=== PATIENT | female | born 2005 | race Caucasian/White ===

== ENCOUNTER → 2024-08-15 13:08 | Outpatient (BNVA) | payer OTHER, SELFPAY | PROVIDERS: Family Provider General Practice; PCP Nurse Practitioner Family; Visit Provider Nurse Practitioner | DX: M79.672 Pain in left foot (principal) | CPT/HCPCS: 73630 ==

== ENCOUNTER 2025-05-17 19:12 | Emergency (ER) | payer OTHER, SELFPAY ==
--- OUTSIDE RECORDS SUMMARY | 2025-02-15 23:59 | XMS_ITS | Continuity of Care Document ---
Author Name [facility] Address [address] [place] [address] Organization [facility] Care Team Providers Care [employer] Architect Name Role Phone [facility] Unavailable Unavailable Problems Problem Status Onset Date Problem Type Date of Resolution Comments Source Paresthesia (finding) 10/29/2024 Diagnosis Pain in left foot (finding) 08/28/2024 Diagnosis Pilonidal abscess 06/30/2024 Diagnosis Cellulitis (disorder) 06/29/2024 Diagnosis Anxiety (finding) Active Condition Attention deficit hyperactivity disorder (disorder) Active Condition Depressive disorder (disorder) Active Condition Gender dysphoria (disorder) Active Condition History of - ear disorder (context-dependent category) Resolved Condition Menstrual cramp (finding) Active Condition Gender identity disorder (disorder) Diagnosis Carpal tunnel syndrome of right wrist (disorder) Diagnosis History of - psychiatric disorder (context-dependent category) Diagnosis Carpal tunnel syndrome, right upper limb Active Diagnosis Medications Medication Details Route Status Patient Instructions Ordering Provider Order Date Source Testosterone Cypionate 200 mg/mL intramuscular solution 100 mg = 0.5 mL, Subcutaneou s, qWeek, dispense 4 x 1 mL vials. Discard after use., # 4 mL, Refill(s) 2, Pharmacy: [facility], 159.9, cm, 01/17/24 13:31:00 CDT, Height (cm), kg, 05/18/24 14:11:00 CDT, Weight (kg), 88.[address] [place] [address] Results Order Name Results Value Reference Range Date Interpretation Comments Source CLINIC SITE LAB RESULTS POC U hCG (Rals) Negative *NA* (01/22/25 6:07 AM) 01/22 11:07 [facility] Testosterone Total 582.32 ng/dL 08/28 17:33 :00 [facility] [place] 2] GENERAL CHEMISTRY BUN 8 mg/dL 6 - 20 08/28 17:33 :00 [facility] [place][Note 2] GENERAL CHEMISTRY ALT-SGPT 21 U/L 10 - 40 08/28 17:33 :00 [facility] [place][Note 2] GENERAL CHEMISTRY Creatinine, standardized 0.8 mg/dL 0.5 - 1.0 08/28 17:33 :00 Interpretive Data: Ojkivs-gb-zow e transgender patients on testosterone therapy should have results assessed using the male reference range. Ctyh-yc-chymv e transgender patients on hormone-modul ating therapy clinical judgment is advisedfor assessment. [facility] [place][Note 2] GENERAL CHEMISTRY Total Protein 7.5 g/dL 5.7 - 8.2 08/28 17:33 :00 [facility] [place][Note 2] GENERAL CHEMISTRY Chloride 101 mmol/L 98 - 107 08/28 17:33 :00 [facility] [place][Note 2] GENERAL CHEMISTRY Glucose Lvl 136 mg/dL 70 - 139 08/28 17:33 :00 [facility] [place][Note 2] GENERAL CHEMISTRY Calcium 9.3 mg/dL 8.3 - 10.6 08/28 17:33 :00 [facility] [place][Note 2] GENERAL CHEMISTRY CO2 30 mmol/L 20 - 31 08/28 17:33 :00 [facility] [place][Note 2] GENERAL CHEMISTRY Potassium 3.8 mmol/L 3.5 - 5.1 08/28 17:33 :00 [facility] [place][Note 2] GENERAL CHEMISTRY Sodium 140 mmol/L 136 - 145 08/28 17:33 :00 [facility] [place][Note 2] GENERAL CHEMISTRY Estimated GFR for peds Not Calculated mL/min/1.7 3m 08/28 17:33 :00 Interpretive Data: The estimated GFR was calculated using the B to St equation (2009) . Reference: Pediatric GFR calculator at [employer] Website. [facility] [place][Note 2] GENERAL CHEMISTRY Estimated GFR for Adults 117 mL/min/1.7 3m 08/28 17:33 :00 Interpretive Data: Changed to CKD-EPI 2020 on 2020. [facility] [place][Note 2] GENERAL CHEMISTRY Alkaline Phosphatase 96 U/L 35 - 104 08/28 17:33 :00 [facility] [place][Note 2] GENERAL CHEMISTRY Albumin 4.1 g/dL 3.4 - 5.0 08/28 17:33 :00 [facility] [place][Note 2] GENERAL CHEMISTRY T Bili 0.40 mg/dL 0.30 - 1.20 08/28 17:33 :00 [facility] [place][Note 2] GENERAL CHEMISTRY AST-SGOT 20 U/L 08/28 17:33 :00 [facility] [place][Note 2] GENERAL CHEMISTRY Anion gap 13 mmol/L 0 - 20 08/28 17:33 :00 [facility] [place][Note 2] GENERAL CHEMISTRY 3rd Generation TSH 2.287 mcIU/mL 0.550 - 4.780 08/28 17:33 :00 Interpretive Data: Reference Interval I U/mL Infants (1 2 3 months) 0.87 6 .15 Children (2 1 2 years) 0.67 4 .16 Adolescents (13 2 0 years) 0.48 4 .17 [facility] [place][Note 2] GENERAL CHEMISTRY Vitamin B12 718 pg/mL 211 - 911 08/28 17:33 :00 [facility] [place][Note 2] GENERAL CHEMISTRY Folate 38.64 ng/mL 08/28 17:33 :00 [facility] [place][Note 2] HEMATOLOGY PROFILES % Basophils 0.8 % 08/28 17:33 :00 [facility] [place][Note 2] HEMATOLOGY PROFILES Absolute Granulocytes 3.02 x10(9)/L 1.70 - 7.00 08/28 17:33 :00 [facility] [place][Note 2] HEMATOLOGY PROFILES % Immature Granulocytes 0.40 % 0.02 - 0.42 08/28 17:33 :00 [facility] [place][Note 2] HEMATOLOGY PROFILES Abs Monocytes 0.42 x10(9)/L 0.30 - 0.90 08/28 17:33 :00 [facility] [place][Note 2] HEMATOLOGY PROFILES Abs Lymphocytes 1.56 x10(9)/L 0.90 - 2.90 08/28 17:33 :00 [facility] [place][Note 2] HEMATOLOGY PROFILES % Nucleated RBCs 0.0 % 08/28 17:33 :00 [facility] [place][Note 2] HEMATOLOGY PROFILES Absolute Nucleated RBCs 0.0 x10(9)/L 0.0 - 0.0 08/28 17:33 :00 Interpretive Data: Normal values not established in patients less than 18 years old. [facility] [place][Note 2] HEMATOLOGY PROFILES Abs Basophils 0.04 x10(9)/L 0.00 - 0.30 08/28 17:33 :00 [facility] [place][Note 2] HEMATOLOGY PROFILES Abs Eosinophils 0.09 x10(9)/L 0.05 - 0.50 08/28 17:33 :00 [facility] [place][Note 2] HEMATOLOGY PROFILES % Lymphocytes 30.3 % 08/28 17:33 :00 [facility] HEMATOLOGY PROFILES % Neutrophils 58.6 % 08/28 17:33 :00 [facility] HEMATOLOGY PROFILES Abs Immature Granulocytes 0.02 x10(9)/L 0.00 - 0.03 08/28 17:33 :00 [facility] HEMATOLOGY PROFILES % Eosinophils 1.7 % 08/28 17:33 :00 [facility] [place][Note 2] HEMATOLOGY PROFILES % Monocytes 8.2 % 08/28 17:33 :00 [facility] [place][Note 2] HEMATOLOGY PROFILES RBC 5.21 x10(12)/L 3.90 - 5.03 08/28 17:33 :00 [facility] [place][Note 2] HEMATOLOGY PROFILES WBC 5.15 x10(9)/L 3.50 - 10.50 08/28 17:33 :00 [facility] [place][Note 2] HEMATOLOGY PROFILES HCT 46.0 % 34.9 - 44.5 08/28 17:33 :00 Interpretive Data: Eahkft-dw-crt e transgender patients on testosterone therapy should have results assessed using the male reference range. Eotg-ua-wkfzs e transgender patients on hormone-modul ating therapy clinical judgment is advisedfor assessment. [facility] [place][Note 2] HEMATOLOGY PROFILES HGB 15.0 g/dL 12.0 - 15.5 08/28 17:33 :00 Interpretive Data: Fceswy-us-tmp e transgender patients on testosterone therapy should have results assessed using the male reference range. Bgiq-hz-dqskd e transgender patients on hormone-modul ating therapy clinical judgment is advisedfor assessment. [facility] [place][Note 2] HEMATOLOGY PROFILES MPV 11.9 8.0 - 12.0 08/28 17:33 :00 [facility] HEMATOLOGY PROFILES PLT 230 x10(9)/L 150 - 450 08/28 17:33 :00 [facility] [place][Note 2] HEMATOLOGY PROFILES RDW SD 46.5 fL 36.4 - 46.3 08/28 17:33 :00 [facility] HEMATOLOGY PROFILES MCH 28.8 pg 26.0 - 33.0 08/28 17:33 :00 [facility] [place][Note 2] HEMATOLOGY PROFILES MCV 88.3 fL 81.6 - 98.3 08/28 17:33 :00 [facility] [place][Note 2] HEMATOLOGY PROFILES RDW CV 14.6 % 11.9 - 15.5 08/28 17:33 :00 [facility] [place][Note 2] HEMATOLOGY PROFILES [facility] 32.6 g/dL 32.0 - 36.0 08/28 17:33 :00 [facility] CHEMISTRY Estimated Average Glucose 117 mg/dL 08/28 17:33 :00 Interpretive Data: Interpretativ e Information: Estimated Average Glucose (eAG) Comment Tab: The table below shows the relationship between HbA1c and estimated average glucose (eAG). These data are presented only as a general guide for patient education. HbA1c (%) eAG (mg/dL) 4 70 5 97 6 126 7 154 8 183 9 212 10 240 11 269 12 298 Formula: eAG = 28.7 x HbA1c 46.7 REFERENCE: Charbel FERNANDEZ et al: Translating the A1c Assay into Estimated Average Glucose Values. Diabetes Care 31:1473-8, 2007 [facility] CHEMISTRY Hemoglobin A1c 5.7 % 4.0 - 5.6 08/28 17:33 :00 Interpretive Data: Interpretativ e Information: Hemoglobin A1C (HbA1c) Comment Tab: [place] Diabetes Association criteria: 5.6% Normal 5.7 to 6.4 % Prediabetes 6.5% Diabetes Repeat hemoglobin A1c testing or follow-up with an alternative test such as the 2-hour OGTT is required prior to the diagnosis of diabetes. Prediabetes: Patient counseling and commitment to a course of lifestyle modification is recommended with follow-up testing 3-6 months later. Diabetes mellitus: HbA1c correlates highly with average daily glycemia over the preceding 60-90 day period. While g ood control is generally considered to be HbA1c < 7.0%, individual factors influence HbA1c goals and attained results, which providers should take into account when using HbA1c in patient management and counseling. In particular, HbA1c does not reliably capture frequency and severity of treatment-rel ated hypoglycemia, which may obligate relaxation of HbA1c goals for the patient. Note: Any condition that shortens erythrocyte survival or decreases mean erythrocyte age will lower HbA1c results regardless of the assay method. HbA1c results after blood transfusion should be interpreted with caution. REFERENCES: The Diabetes Control and Complications Trial Research Group: The effect of intensive treatment of diabetes on the development and progression of long-term complications in insulin-depen dent diabetes mellitus. N Engl J Med 329:977-86, 1993 National Glycohemoglob in Standardizati on Program (NGSP) website: http://www.ng sp.org [facility] GENERAL CHEMISTRY Testosterone Total 646.71 ng/dL 05/22 16:54 :00 [facility] HEMATOLOGY PROFILES % Nucleated RBCs 0.0 % 05/22 16:54 :00 [facility] HEMATOLOGY PROFILES Absolute Nucleated RBCs 0.0 x10(9)/L 0.0 - 0.0 05/22 16:54 :00 Interpretive Data: Normal values not established in patients less than 18 years old. [facility] HEMATOLOGY PROFILES % Neutrophils 57.5 % 05/22 16:54 :00 [facility] HEMATOLOGY PROFILES % Lymphocytes 33.0 % 05/22 16:54 :00 [facility] HEMATOLOGY PROFILES % Monocytes 6.3 % 05/22 16:54 :00 [facility] HEMATOLOGY PROFILES % Eosinophils 2.1 % 05/22 16:54 :00 [facility] HEMATOLOGY PROFILES % Basophils 1.1 % 05/22 16:54 :00 [facility] HEMATOLOGY PROFILES % Immature Granulocytes 0.00 % 0.02 - 0.42 05/22 16:54 :00 [facility] HEMATOLOGY PROFILES Absolute Granulocytes 2.74 x10(9)/L 1.70 - 7.00 05/22 16:54 :00 [facility] HEMATOLOGY PROFILES Abs Lymphocytes 1.57 x10(9)/L 0.90 - 2.90 05/22 16:54 :00 [facility] HEMATOLOGY PROFILES Abs Monocytes 0.30 x10(9)/L 0.30 - 0.90 05/22 16:54 :00 [facility] HEMATOLOGY PROFILES Abs Eosinophils 0.10 x10(9)/L 0.05 - 0.50 05/22 16:54 :00 [facility] HEMATOLOGY PROFILES Abs Basophils 0.05 x10(9)/L 0.00 - 0.30 05/22 16:54 :00 [facility] HEMATOLOGY PROFILES Abs Immature Granulocytes 0.00 x10(9)/L 0.00 - 0.03 05/22 16:54 :00 [facility] HEMATOLOGY PROFILES WBC 4.76 x10(9)/L 3.50 - 10.50 05/22 16:54 :00 [facility] HEMATOLOGY PROFILES RBC 5.02 x10(12)/L 3.90 - 5.03 05/22 16:54 :00 [facility] HEMATOLOGY PROFILES HGB 14.2 g/dL 12.0 - 15.5 05/22 16:54 :00 Interpretive Data: Kmjnmb-kj-ekj e transgender patients on testosterone therapy should have results assessed using the male reference range. Pcqu-pi-vyvfh e transgender patients on hormone-modul ating therapy clinical judgment is advisedfor assessment. [facility] HEMATOLOGY PROFILES HCT 43.7 % 34.9 - 44.5 05/22 16:54 :00 Interpretive Data: Ikxtdm-fl-mbu e transgender patients on testosterone therapy should have results assessed using the male reference range. Efol-uj-wxgdl e transgender patients on hormone-modul ating therapy clinical judgment is advisedfor assessment. [facility] HEMATOLOGY PROFILES MCV 87.1 fL 81.6 - 98.3 05/22 16:54 :00 [facility] HEMATOLOGY PROFILES MCH 28.3 pg 26.0 - 33.0 05/22 16:54 :00 [facility] HEMATOLOGY PROFILES MCHC 32.5 g/dL 32.0 - 36.0 05/22 16:54 :00 [facility] HEMATOLOGY PROFILES RDW CV 14.4 % 11.9 - 15.5 05/22 16:54 :00 [facility] HEMATOLOGY PROFILES RDW SD 46.1 fL 36.4 - 46.3 05/22 16:54 :00 [facility] HEMATOLOGY PROFILES PLT 256 x10(9)/L 150 - 450 05/22 16:54 :00 [facility] HEMATOLOGY PROFILES MPV 11.4 8.0 - 12.0 05/22 16:54 :00 [facility] Consultation Notes Results Value Date Source Orthopaedic Clinic Note Admit Date: 01/19 ID: 19 Years old Female Surgical Procedure: Right open carpal tunnel release Date of Surgery: 01/22/2025 (3 weeks post-op) Date of Last Visit: 02/04/25 Clinical History and Progress: Patient is a 19 year old RHD female 3 weeks status post above mentioned procedure. Today, patient reports 4/10 pain and has been doing well overall postoperatively. Patient feels that the numbness and tingling has improved compared to preoperatively but has noticed some continued decreased foster parent strength and some weakness. Patient reports that he used the brace for a couple of nights postoperatively, and the tingling sensations he was previously experiencing have since resolved. He also has some increased swelling of the right hand, which has improved some. Patient has continued to take naproxen for pain. General Physical exam: General appearance: The patient appears as stated age, well, comfortable and in no apparent distress. Disposition: Vitals: not recorded for this visit Focused upper extremity exam: Surgical incision is well healed Able to make a complete fist Slight increased edema on the dorsum of the hand with equal wetness compared to the contralateral side Neurologically intact in the median, ulnar, and radial nerve distributions. BCR. Imaging / diagnostic studies: None. Impression/Plan: Patient is a 19 year old female status post above mentioned procedure. Patient has been doing well overall postoperatively. His numbness and tingling have improved compared to preoperatively but still feels weakness in his right hand. After physical exam, clinical findings were discussed with the patient. I am pleased with the progress that patient has made postoperatively. In regard to patient's right hand weakness, I reassured patient that this is common after surgery and anticipate that this will continue to improve with time as he continues to use his hand and rebuilds strength. Patient is cleared to proceed with activity as tolerable. In regard to patient's left hand, he expressed that he would like to hold off on surgical intervention at this time. I instructed patient to reach back out to clinic to schedule follow up if his left hand symptoms worsen and he is interested in further intervention. Patient was agreeable with this plan. All questions were answered and patient was encouraged to call should needs arise. Follow-up: PRN This document was scribed for Dr. Toro Cevallos by Ezio Alfonso, on 02/15/25 12:57:47 Attestation by Toro Cevallos MD on February 17, 2025 13:51 I was present for this appointment, confirmed the exam, and agree with the plan as described in the note above scribed in my presence on the date and time listed at the header of this document with additional comments as noted: None Dr. Toro Cevallos MD, MS [employer] Hand and Microvascular Surgeon [facility] [facility] 02/15/2025 Orthopaedic Clinic Note Visit Date: 01/17 ID: 19 Years old Female Surgical Procedure: Right open carpal tunnel release Date of Surgery: 01/22/2025 (13 days post-op) Clinical History and Progress: Yary is a pleasant 19-year-old patient who comes to clinic today for their first postoperative visit for the above-stated procedure. The patient states that they have been doing pretty good since surgery. The patient indicates that postoperative pain has been somewhat difficult to manage. At this time Yary is rating pain a 6 out of 10. Yary has been using iahk-whh-wrspncm Aleve as well as using ice to help with pain management. Initially, after surgery Yary indicates that symptoms felt improved. However, about 3 or 4 days post op they began to have a persistent prickling type sensations. They describe this as different than what they were experiencing prior to surgery. Yary describes this as fairly persistent, however sometimes more intense and comes increases in intensity comes at random times. Sometimes Yary does not notice this. Yary also notes that the prikling sensation has woke him up at night or has made it difficult to fall asleep. When asked if the night time if the night time symptoms were worse, same, or better after surgery Yary had some difficulty answering. After some hesitation and thought Yary felt that maybe night time symptoms are a little worse. Yary is still having left sided symptoms. General Physical exam: General appearance: The patient appears as stated age, well, comfortable and in no apparent distress. Disposition: Vitals: Temperature 35.9 (02/04/25 08:59) Pain Score 6 (02/04/25 08:59) Focused upper extremity exam: Surgical incision is clean, dry, healed. Nylon sutures were removed in clinic. At this time there are no concerning signs or symptoms of infection. Swelling about the palm and digits and distal wrist. Distance palmar crease 0 cm Sensations are intact to light touch at this time. Paresthesias are noted in the thumb through middle finger digits. Digits are warm well-perfused, capillary fill is 2 seconds Imaging / diagnostic studies: None Impression/Plan: Overall, Yary is doing good. Yary was complaint with post op dressings. There are no concerning sings of infection. There is some swelling present through out the wrist, palm, and digits when compared to the left hand. Nylons sutures were removed today. There is pilar pain in the base of the palm. Yary has intact sensations with a self described prickling sensation. This sensation developed about 3-4 days after surgery. It has been fairly persistent, and at times does increase transiently and at random. There have been a few occasions when this has not been present. This prickling sensation has interfere with night time. Yary states that he has has some difficulty falling asleep due to this and on a few occasions has woken him up. When asked if the night time if the night time symptoms were worse, same, or better after surgery Yary had some difficulty answering. After some hesitation and thought Yary felt that maybe night time symptoms are a little worse. I I suspect that this could be a sign that his median nerve is waking up and healing some. I let Yary know that this can sometimes happen with nerves and experiencing some weird sensations. I let Yary know that this usually does improve over time. I also suspect this due to some of the swelling about the wrist, palm, and digits. I suspect that with some more time with healing that this will improve. Given this I would like to see Yary back in clinic in 2 weeks for a repeat assessment. He was agreeable with this. I would also like Yary to use their wrist brace at night to help prevent flexion of the wrist while there is still some swelling and inflammation present. Yary verbalized understanding. Yary was advised to contact the office sooner if any needs were to arise. Follow-up: 2 Weeks Patient seen and assessed by Andres Tobar MS, ATC, LAT, OTC on 02/04/25 09:27:55 [employer] Leak Tester to Dr. Toro Cevallos MD, MS *This dictation was performed using HumanAPI software and may contain dictation inaccuracies Attestation by Toro Cevallos MD on 02/05/25 06:45:38 I discussed the patient with the ATC/OTC on the date listed at the header of this document. I agree with everything documented above with the following exceptions/additions: None Sincerely, Dr. Toro Cevallos MD, MS [employer] Hand and Microvascular Surgeon [facility] [facility] 02/04/2025 Op/Procedure Note Indication for Surge ry Symptoms of carpal tunnel syndrome refractory to conservative treatment. After a full discussion of the risks, benefits, and alternatives of carpal tunnel release the patient wished to proceed with surgery. Further details are available in the office notes. Preoperative Diagnosis Right carpal tunnel syndrome Postoperative Diagnosis Same Operation Right open carpal tunnel release Surgeon(s) Dr. Toro Cevallos MD [place] [employer] Leak Tester Dr. HEVER Hines MD Anesthesia MAC plus local Estimated Blood Loss 5 cc Urine Output Findings Thickened transverse carpal ligament Specimen(s) None Complications None Technique The patient was placed supine on operating room table. Timeout was called identifying the correct patient, procedure, operating room team, presence of all necessary equipment, and lack of contra-indications to surgery. The incision site was infiltrated with 10mL of a 1:1 mixture of 1% lidocaine and 0.5% marcaine local anesthetic. The operative extremity was then thoroughly scrubbed prepped and draped in a sterile fashion. The hand was elevated for exsanguination and then the distal forearm tourniquet was inflated to 250 mm of mercury. A 2 cm incision was made in line with the ring finger metacarpal from the distal margin of the transverse carpal ligament proximal. Dissection was carried down to the palmar fascia, which was opened longitudinally. The transverse carpal ligament was then visualized and divided along its ulnar border distally until fat became visible. Care was taken distally to protect the deep palmar arch throughout the dissection. The subcutaneous tissue was then elevated off the distal forearm fascia. The fascia was then divided proximally under direct visualization. The radial leaf of the transverse carpal ligament was elevated exposing the median nerve. The nerve was free and clear of constriction at the end of the procedure. No other pathology was identified. The tourniquet was released, all fingertips were pink with good capillary refill. Hemostasis was achieved with bipolar cautery. The wound was copiously irrigated. The skin was then closed with interrupted 4-0 nylon. Xeroform and a light dressing was applied. The patient was transferred to the recovery room having tolerated the procedure well. Follow up arrangements: COURTNEY JIMENEZ has been given a followup appointment and has been instructed in the importance of keeping this appointment. If questions, concerns or any other issues arise, instructions have been given to call the office immediately. 01/22/2025 Orthopaedic Clinic Note Attending Physic ruslan: Toro Cevallos MD Referring Physician: Leyda DIEZ Original Referring Provider: Leyda DIEZ Primary Care Physician: Dennys Molina MD Visit Date: 01/09/2025 ID: 19 Years old Female Hand dominance: RHD Occupation: unemployed. [facility] [employer] Reason for consult: REFERRAL BILATERAL CARPAL TUNNEL Past Medical History: History of ear infections as a child Problems: Anxiety; Depression; Gender dysphoria; Menstrual cramps Procedure History: Tympanostomy tubes (04/14/08) Prescription Medications escitalopram (escitalopram 20 mg): 20 mg 1 Tablet(s) Oral Daily albuterol (albuterol HFA 90 mcg/inh inhalation aerosol): 2 Puff Inhalation q4h PRN (as needed for wheezing) Misc. Medication (18 guage fill needle): See Instructions use with testosterone Misc. Medication (1 cc syringe): See Instructions use with testosterone Misc. Medication (needle 23 guage x 1 inch): See Instructions use with testosterone testosterone (Testosterone Cypionate 200 mg/mL intramuscular solution): 100 mg/0.5 mL Subcutaneous qWeek dispense 4 x 1 mL vials. Discard after use. 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 Home/Environment Comment(s): [place], [place] Substance Abuse Risk Assessment: Denies Substance Abuse Tobacco Risk Assessment: Denies Tobacco Use No other relevant social or family history provided in context of current presenting complaint. Clinical history (HPI): Yary Ramirez is a pleasant 19 year old biological female transitioning to male presenting with a concern for numbness and tingling in her bilateral hands right worse than left. He reports that he first started having the symptoms in May. He first sought treatment in August when he started wearing neutralization wrist braces. He reports that the braces were not very helpful. He states that he feels like there is slowly worsening of his symptoms. Physical exam: General appearance: The patient appears as stated age, well, comfortable and in no apparent distress. Disposition: Pleasant Vital Signs: Temperature 36.9 (01/09/25 14:34) Pain Score 0 (01/09/25 14:34) Cardiovascular: Normal peripheral pulse and normal rate Respiratory: Non-labored breathing. Talks in full sentences without shortness of breath. Focused right upper extremity exam of the affected extremity: Pain: 0/10 FC of the Right cubital tunnel negative, Tinel's right cubital tunnel negative, negative Tinel's at the right carpal tunnel, positive combined Phalen Durkan's at the right carpal tunnel 2 point intact to 5mm in the 1st through 5 digits. negative Froment, negative Wartenberg On inspection, there was no wrist or digit edema. There was no erythema or ecchymosis. Normal skin colour, turgor and perspiration. There was no thenar, hypothenar, or interosseous muscle atrophy. Capillary refill was <2 seconds in all digits. EPL, Index FDP, APB, and interossei motor exam was 5/5. Sensation was intact to light touch in the radial, median, and ulnar nerve distributions. Focused left upper extremity exam of the affected extremity: Pain: 0/10 FC of the left cubital tunnel positive, Tinnels left cubital tunnel negative, negative tinnels at the left carpal tunnel, positive combined Phalen Durkan's at the left carpal tunnel 2 point intact to 5mm in the 1st through 5 digits. negative Froment, negative Wartenberg On inspection, there was no wrist or digit edema. There was no erythema or ecchymosis. Normal skin colour, turgor and perspiration. There was no thenar, hypothenar, or interosseous muscle atrophy. Capillary refill was <2 seconds in all digits. EPL, Index FDP, APB, and interossei motor exam was 5/5. Sensation was intact to light touch in the radial, median, and ulnar nerve distributions. Imaging / diagnostic studies: The patient's EMG/NCS was independent reviewed. This demonstrates bilateral carpal tunnel syndrome with no evidence of any denervation. The official read is as follows: Findings: 1. Right median APB CMAP demonstrates distal latency prolongation. 2. Left median APB CMAP demonstrates borderline normal distal latency. 3. Both right and left median digital sensory studies demonstrate peak latency prolongation with velocity slowing, right>left. 4. Ulnar and radial nerve studies are within normal limits. 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 [1] Impression: Bilateral carpal tunnel syndrome R> L Plan: Patient is a 19 year old biological female transitioning to male who presents with bilateral right worse than left carpal tunnel. I discussed the patient's diagnosis Bilateral carpal tunnel syndrome and outlined the natural history of the presenting pathology. Based on our discussion and the clinical findings, I discussed my proposed surgical option with the patient, consisting of Right open carpal tunnel release. The nonoperative treatment options were also discussed as well. The risks and benefits of surgery were discussed with the patient. These included but were not limited to pain, infection, bleeding, damage to surrounding structures, nerve irritation or injury, vascular injury, incisional hypersensitivity, pillar pain, persistent symptoms, recurrent symptoms, median nerve injury, subsequent surgeries, stiffness, complex regional pain syndrome, and complications of anesthesia. Additionally, the patient understands that surgery could make them no better or worse than they were before surgery. I discussed that I cannot predict adverse events such as allergic reaction to medications, anesthesia, or temporary implants. I discussed the expected outcomes following surgery, including the recovery period, the length of immobilization post-operatively, time off work, and anticipated pain control regimens. The patient expressed understanding, and wishes to proceed with surgery. Signed informed consent was obtained in Clinic. Follow-up: OR for carpal tunnel release Patient seen and assessed with attending surgeon Dr. Toro Cevallos; Clinical note dictated by Dr. Hines on 01/09/25 17:11:41 *This note was dictated using either HumanAPI or PowerChart and may contain dictation inaccuracies. Attestation by Toro Cevallos MD on January 10, 2025 12:19 I personally saw and evaluated the patient on the date listed at the header of this document. I independently performed the critical/mcmahan portions of the Evaluation and Management service and discussed the management with the resident. I agree with everything documented above with the following exceptions/additions: None Sincerely, Dr. Toro Cevallos MD, MS [employer] Hand and Microvascular Surgeon [facility] [facility] [place] 01/09/2025 Orthopaedic Clinic Note Visit Date: 12/18 ID: 19 Years old Female Hand dominance: Right Occupation: Unemployed Chief Complaint: Bilateral hand numbness/tingling Past Medical History: Anxiety; Depression; Gender dysphoria; Menstrual cramps Procedure History: Tympanostomy tubes (04/14/08) Prescription Medications escitalopram (escitalopram 20 mg): 20 mg 1 Tablet(s) Oral Daily albuterol (albuterol HFA 90 mcg/inh inhalation aerosol): 2 Puff Inhalation q4h PRN (as needed for wheezing) Misc. Medication (18 guage fill needle): See Instructions use with testosterone Misc. Medication (1 cc syringe): See Instructions use with testosterone Misc. Medication (needle 23 guage x 1 inch): See Instructions use with testosterone testosterone (Testosterone Cypionate 200 mg/mL intramuscular solution): 100 mg/0.5 mL Subcutaneous qWeek dispense 4 x 1 mL vials. Discard after use. Historical Medications busPIRone (busPIRone 15 mg): 60 Tablet(s), 0 Refill(s) atomoxetine (atomoxetine 60 mg): 30 Each, 0 Refill(s), TAKE 1 CAPSULE BY MOUTH ONCE DAILY IN THE MORNING Allergies/Adverse Drug Reactions: No Known Medication Allergies Social history: Alcohol Risk Assessment: Denies Alcohol Use Substance Abuse Risk Assessment: Denies Substance Abuse Tobacco Risk Assessment: Denies Tobacco Use No other relevant social or family history provided in context of current presenting complaint. Clinical History (HPI): Yary is a 19 year-old who reports onset of bilateral hand numbness and tingling that started over a year ago. 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 The numbness and tingling involves mostly the thumb, index, and middle fingers and occurs intermittently. The right side is worse than the left. The patient has exacerbation of the numbness and tingling particularly when performing activities with their hands/wrist such as when playing computer games, using their phone, crocheting, and playing the [employer]. Their symptoms do not necessarily wake him at night but when they do wake at night he noticed there hands feel numb and tingly. They have been nighttime neutral wrist bracing for about 2 months with no significant improvement in their symptoms. Also, they have noticed significant weakness in the hands and decreased foster parent strength. Review of Systems: 14 system review did not demonstrate any pertinent positives other than what is described in the history of present illness. General Physical Exam: General appearance: The patient appears as stated age, well, comfortable and in no apparent distress. Vital Signs: Pain Score 2 (12/31/24 15:07) Cardiovascular: Normal peripheral pulse and normal rate Respiratory: Non-labored breathing. Talks in full sentences without shortness of breath. Focused upper extremity exam: Bilateral No wrist or digit edema. No erythema or ecchymosis. Normal skin colour, turgor and perspiration. Capillary refill was <2 seconds in all digits. Radial and Ulnar pulses were 2+. No thenar, hypothenar, or interosseous muscle atrophy. Sensation was intact to light touch in the radial, median, and ulnar nerve distributions. APB and interossei motor exam was 5/5. Right wrist: + Tinel s , + Phalen/Durkan s . Left wrist: Equivocal Tinel s , + Phalen/Durkan s . Bilateral elbow: - Tinel s , - Flexion Compression test Negative Wartenberg. Imaging /Diagnostic studies: Electrodiagnostic studies performed by Dr. Dennys Mason on October 29, 2023 with results listed below: Findings: 1. Right median APB CMAP demonstrates distal latency prolongation. 2. Left median APB CMAP demonstrates borderline normal distal latency. 3. Both right and left median digital sensory studies demonstrate peak latency prolongation with velocity slowing, right>left. 4. Ulnar and radial nerve studies are within normal limits. 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 Impression/Plan: Yary is a RHD 19 year old with clinical signs and symptoms consistent with bilateral carpal tunnel syndrome. We discussed the patient's diagnosis and outlined the natural history of the presenting pathology. We reviewed the patient's EMG findings today. We discussed treatment options that are available, both conservative and operative. Symptoms are refractory to conservative treatment with nighttime neutral wrist bracing for 2 months. Their symptoms are interfering with daily activities and hobbies. We discussed surgical referral as a next step, which they are interested in. I placed an order for referral to one of our hand surgeons to discuss surgical intervention with them further. Until then, they will continue with nighttime neutral wrist bracing. The plan of care was discussed and the patient was agreeable to the plan. All questions were answered and the patient was encouraged to call should any need arise. Follow-up: With hand surgeon *This note was dictated using either HumanAPI or Magisto and may contain dictation inaccuracies. 12/31/2024 History and Physicals Results Value Date Source History and Physical Admission Note Upda te HPI/Hx: There is no change in the patient's condition since last clinic visit. We will proceed with the plan of care as previously documented. For further history please refer to documentation by Anesthesia team 01/21/25. Past medical, surgical, social, and family histories reviewed as previously documented. No new changes. PE: General: Alert and oriented. No acute distress. Cardiovascular: Normal peripheral perfusion. Respiratory: Non-labored breathing. Focused MSK exam: RUE shows intact skin with no signs of bruising or erythema. Neurovascularly intact. A/P: The plan of care was discussed with the patient. Questions were sought and answered, and understanding was obtained from the patient. The patient wishes to proceed as planned. Operative site and laterality were confirmed and marked. Informed consent was checked and is in the patient's chart. 01/22/2025 Vital Signs Vital Sign Value Date Comments Source BMI 31.4 kg/m2 01/09/2025 19:34:[address] [facility] Temperature (Celsius) 36.9 [place] 01/09/2025 19:34:[address] [facility] Height (cm) 162 cm 01/09/2025 19:34:[address] [facility] BSA Any 1.87 01/09/2025 19:34:[address] [facility] Weight (kg) 82.3 kg 01/09/2025 19:34:[address] [facility] Height (cm) 162 cm 12/31/2024 20:07:[address] [facility] Weight (kg) 82.3 kg 12/31/2024 20:07:[address] [facility] BMI 31.4 kg/m2 12/31/2024 20:07:[address] [facility] BSA Any 1.87 12/31/2024 20:07:[address] [facility] Respiratory Rate 16 breaths/min 08/28/2024 16:30:00 [facility] Weight (kg) 86.3 kg 08/28/2024 16:30:00 [facility] Heart Rate 88 bpm 08/28/2024 16:30:00 [facility] Temperature (Celsius) 36.6 Delmi 08/28/2024 16:30:00 [facility] SBP NIBP 136 mm[Hg] 08/28/2024 16:30:00 [facility] DBP NIBP 86 mm[Hg] 08/28/2024 16:30:00 [facility] SBP NIBP 144 mm[Hg] 06/30/2024 19:03:00 [facility] DBP NIBP 90 mm[Hg] 06/30/2024 19:03:00 [facility] Heart Rate 100 bpm 06/30/2024 19:03:00 [facility] Respiratory Rate 16 06/30/2024 19:03:00 [facility] SpO2 100 % 06/30/2024 19:03:00 [facility] Temperature (Celsius) 36.5 Delmi 06/30/2024 19:03:00 [facility] Weight (kg) 87.9 kg 06/29/2024 19:36:00 [facility] Temperature (Celsius) 36.8 Delmi 06/29/2024 19:36:00 [facility] Heart Rate 101 bpm 06/29/2024 19:36:00 [facility] Respiratory Rate 16 06/29/2024 19:36:00 [facility] SBP NIBP 145 mm[Hg] 06/29/2024 19:36:00 [facility] DBP NIBP 82 mm[Hg] 06/29/2024 19:36:00 [facility] Weight (kg) 88.7 kg 05/18/2024 19:11:00 [facility] Temperature (Celsius) 36.8 Delmi 05/18/2024 19:11:00 [facility] Heart Rate 101 bpm 05/18/2024 19:11:00 [facility] Respiratory Rate 20 breaths/min 05/18/2024 19:11:00 [facility] SBP NIBP 125 mm[Hg] 05/18/2024 19:11:00 [facility] DBP NIBP 82 mm[Hg] 05/18/2024 19:11:00 [facility] Encounters Location Location Details Encounter Type Encounter Number Reason For Visit Attending Provider ADM Date DC Date Status Source [facility] [id number] Dennys [facility] 05/18 19:00 :35 05/19 04:59 :59 [facility] Outpatient [id number] Dennys [facility] 05/22 16:34 :53 05/23 04:59 :59 [facility] Between Visit [id number] 05/22 20:11 :42 05/23 04:59 :59 [facility] Clinic [id number] [facility] 06/29 19:11 :17 06/30 04:59 :59 [facility] [id number] Mindy Garcia 06/30 19:00 :17 06/30 19:31 :00 [facility] Primary Care Clinic [id number] [facility] 08/28 16:22 :23 08/29 05:59 :[address] [facility] Between Visit [id number] 08/29 15:03 :04 08/30 05:59 :59 [facility] [place] 2[facility] [place] [facility] [id number] Rajesh Justice 10/09 19:57 :08 10/10 05:59 :59 [facility] Between Visit [id number] 10/11 20:16 :06 10/12 05:59 :59 [facility] [place] [facility] Outpatient [id number] Dennys Marlon 10/29 21:10 :48 10/30 05:59 :59 [facility] Between Visit [id number] 12/17 12:59 :08 12/18 04:59 :59 [facility] Hand [facility] Wrist Clinic [id number] Leyda Hong 12/31 19:55 :33 01/01 04:59 :59 [facility] Orthopaed ic [facility] [id number] [facility] 01/09 19:24 :11 01/10 04:59 :59 [facility] [place] [facility] Day Surgery [id number] [facility] 01/22 10:51 :07 01/23 04:59 :59 [place] [facility] Nurse Phone Call Clinic [id number] Marc Lauren 01/22 12:27 :49 01/23 04:59 :59 [facility] Hand and Wrist Clinic [id number] [facility] 02/04 13:54 :58 02/05 04:59 :59 [facility] Orthopaed [facility] [place] [facility] Hand and Wrist Clinic [id number] [facility] 02/15 18:13 :29 02/16 04:59 :59 [facility] Orthopaed ic [place] Procedures Procedure Code Date Perfomer Comments Source wisdom teeth [facility] Social History Social History Date Source No data available for this section 02/16/[address] [facility] No data available for this section 02/05/[address] [facility] No data available for this section 01/23/2025 [facility] No data available for this section 01/10/[address] [facility] No data available for this section 01/01/[address] [facility] No data available for this section 12/18/2024 [facility] [place][Note 2] No data available for this section 10/30/2024 [facility] No data available for this section 10/12/2024 [facility] [place][Note 2] No data available for this section 10/10/2024 [facility] No data available for this section 08/30/2024 [facility] [place][Note 2] No data available for this section 08/29/2024 [facility] [place][Note 2] No data available for this section 06/30/2024 [facility] No data available for this section 06/30/2024 [facility] [place][Note 2] No data available for this section 05/23/2024 [facility] [place][Note 2] No data available for this section 05/19/2024 [facility] [place][Note 2]
[2025-05-17 19:14] VITALS: BP 149/90; PULSE 70; RESP 16; TEMP 36.9; O2SAT 100; BMI 29.3
--- NOTE | 2025-05-17 19:18 | ECG_ITS ---
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 Measurements Intervals [place] Rate: 65 P: 79 [place]: 135 QRS: 81 QRSD: 88 T: 62 QT: 394 QTc: 412 Interpretive Statements SINUS RHYTHM WITH SINUS ARRHYTHMIA No previous ECG available for comparison Electronically Signed On 05-20-2025 14:11:17 CDT by Corey Santos M.D. [email or web address]
[2025-05-17 20:34] LABS: Hematocrit 42.9 % (36-47); Hemoglobin 14.40 g/dL (11.27-16.99); Mean Corpuscular HGB Conc 33.6 g/dL (30-55); Mean Corpuscular Hemoglobin 29.7 pg (27-33); Mean Corpuscular Volume 88.5 fl (85-98); Nucleated Red Blood Cells % 0 %; Platelet Count 267 10^3/cmm (157-399); Red Blood Count 4.85 10^6/uL (3.85-5.65); White Blood Count 9.16 10^3/uL (3.29-11.43)
[2025-05-17 20:58] LABS: Alanine Aminotransferase 15 U/L (0-33); Albumin Level 5.2 g/dL (3.5-5.2); Alkaline Phosphatase 82 U/L (35-105); Anion Gap 16.7 (5-19); Aspartate Amino Transferase 13 U/L (0-32); Blood Urea Nitrogen 6 mg/dL (6-20); Calcium 10.1 mg/dL (8.5-10.5); Carbon Dioxide 24 mmol/L (22-29); Chloride 101 mmol/L (98-107); Creatinine Clr Calc Pharmacy 149.4903; Globulin 3.3 g/dL (1.3-4.6); Glucose 132 mg/dL (65-115); Osmolality Calculated 285 mOsm/kg (285-295); Potassium 3.7 mmol/L (3.5-5.1); Sodium 138 mmol/L (136-145); Total Protein 8.5 g/dL (6.6-8.7)
[2025-05-18 00:41] LABS: Glucose Urine UA Negative (Normal); Nitrate Urine Negative (Negative); Specific Gravity, Urine 1.013 (1.005-1.030)
[2025-05-18 00:46] LABS: Add Urine Microscopic? YES
--- NOTE | 2025-05-18 01:09 | ED_ITS ---
HPI - Abdominal Pain 2 General: Chief Complaint: Abdominal Pain Stated Complaint: abd into chest pain n/ Time Seen by Provider: 05/18/25 00:36 History of Present Illness: Patient is a 20-year-old female presenting with acute abdominal pain that radiates to the chest. The pain fluctuates in intensity, at times causing the patient to be slouched over and crying, while at other times allowing her to converse normally. She reports the pain is primarily in the upper abdomen. This is a new symptom that she has never experienced before. She denies fever but reports feeling nauseous at different points today without vomiting. The patient also complains of palpitations, describing her heart as beating really hard throughout her body. Prior to arrival, the patient was evaluated at an urgent care where she was given famotidine, which was ineffective in relieving her symptoms. The patient reports significant gastrointestinal changes over the past three months, including soft stools approximately four times daily. She has experienced unintentional weight loss of approximately 25 pounds over the past eight months. In November, she discontinued three psychiatric medications (Lexapro, Buspar, and Seroquel). 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 The patient reports that her abdominal pain worsened after attempting to lay on her stomach. Related Data Date of Last Menstrual Period: 04/14/25 Previous Rx's ?Medication ?Instructions ?Recorded famotidine 20 mg tablet (Acid 20 mg PO BID 3 weeks #42 tabs 05/17/25 [employer] (famotidine)) sucralfate 1 gram tablet 1 g PO TID 4 weeks #84 tabs 05/18/25 Allergies Allergy/AdvReac Type Severity Reaction Status Date / Time No Known Allergies Allergy Unverified 05/17/25 19:22 [facility] ED 2 PFSH: Social History Smoking and tobacco/nicotine status: never used tobacco/nicotine Female Reproductive History: Date of last menstrual period: 04/14/25 Physical Exam 2 Const: COMMON NORMALS: no acute distress GENERAL APPEARANCE: cooperative; not ill appearing and not frail appearing HENMT: COMMON NORMALS: normocephalic, atraumatic and Normal external nose present HEAD & SCALP: normocephalic and atraumatic FACE & SINUS: normal facial exam and face symmetric NOSE: Normal external nose present Eye: COMMON NORMALS: Equal, round and reactive pupils present and EOMs intact bilaterally PUPIL: Yes Equal, round and reactive pupils present Neck/C-Spine: GENERAL: Yes trachea midline Chest: CHEST: Yes Symmetrical chest wall rise Resp: COMMON NORMALS: normal respiratory effort, No retractions, No use of accessory muscles and clear to auscultation bilaterally AUSCULTATION: clear to auscultation bilaterally Cardio: COMMON NORMALS: regular rate and regular rhythm RATE: regular rate RHYTHM: regular rhythm GI: COMMON NORMALS: Normal to inspection, nondistended, normoactive bowel sounds present PALPATION: Yes Tenderness to palpation present (GI) (Epigastric) Extremity: COMMON NORMALS: no pedal edema Neuro: JAD COMA SCALE: document GCS findings Sewell coma scale eye opening: Spontaneous Sewell coma scale verbal response: Orientated Jad coma scale motor response: Obey commands Sewell coma scale total score: 15 S ENSORY EXAM: Yes extremities (intact) Psych: COMMON NORMALS: speech normal SPEECH: Yes normal speech Skin: COMMON NORMALS: no rashes or lesions noted GENERAL SKIN EXAM: no rashes or lesions noted Course 2 Vital Signs: Vital signs: Vital Signs Temperature 98.4 F 05/17/25 19:14 Pulse Rate 70 05/17/25 19:14 Respiratory Rate 16 05/17/25 19:14 Blood Pressure 149/90 05/17/25 19:14 Pulse Oximetry 100 05/17/25 19:14 Oxygen Delivery Me thod Room Air 05/17/25 19:14 MDM - Abdominal Pain Medical Decision Making Experienced improvement with GI cocktail. CBC BMP are not remarkable. Liver enzymes are normal. Urinalysis is negative. Was prescribed famotidine yesterday. Will add sucralfate. Outpatient follow-up. Return for worsening symptoms Lab Data 05/17/25 20:14 05/17/25 20:14 Labs/Radiology: Laboratory Results WBC 9.16 10^3/uL (3.29-11.43) 05/17/25 20:14 RBC 4.85 10^6/uL (3.85-5.65) 05/17/25 20:14 Hgb 14.40 g/dL (11.27-16.99) 05/17/25 20:14 Hct 42.9 % (36-47) 05/17/25 20:14 MCV 88.5 fl (85-98) 05/17/25 20:14 MCH 29.7 pg (27-33) 05/17/25 20:14 MCHC 33.6 g/dL (30-55) 05/17/25 20:14 RDW 12.9 % (12.1-15.1) 05/17/25 20:14 Plt Count 267 10^3/cmm (157-399) 05/17/25 20:14 MPV 11.8 fL (7.4-10.4) H 05/17/25 20:14 Neut % (Auto) 79.4 % 05/17/25 20:14 Lymph % (Auto) 13.1 % 05/17/25 20:14 Posey % (Auto) 6.4 % 05/17/25 20:14 Eos % (Auto) 0.3 % 05/17/25 20:14 Baso % (Auto) 0.5 % 05/17/25 20:14 Neut # (Auto) 7.26 10^3/uL (1.8-7.7) 05/17/25 20:14 Lymph # (Auto) 1.2 10^3/uL (0.8-4.8) 05/17/25 20:14 Posey # (Auto) 0.6 10^3/uL (0.2-0.9) 05/17/25 20:14 Eos # (Auto) 0.0 10^3/uL (0.0-0.8) 05/17/25 20:14 Baso # (Auto) 0.1 10^3/uL (0.0-0.1) 05/17/25 20:14 Nucleated RBC % (auto) 0 % 05/17/25 20:14 Nucleated RBCs # 0.0 /100WBC 05/17/25 20:14 Sodium 138 mmol/L (136-145) 05/17/25 20:14 Potassium 3.7 mmol/L (3.5-5.1) 05/17/25 20:14 Chloride 101 mmol/L (98-107) 05/17/25 20:14 Carbon Dioxide 24 mmol/L (22-29) 05/17/25 20:14 Anion Gap 16.7 (5-19) 05/17/25 20:14 BUN 6 mg/dL (6-20) 05/17/25 20:14 Creatinine 0.6 mg/dL (0.5-0.9) 05/17/25 20:14 GFR Calculation 126.2 mL/min (90-130) 05/17/25 20:14 Glucose 132 mg/dL (65-115) H 05/17/25 20:14 Calculated Osmolality 285 mOsm/kg (285-295) 05/17/25 20:14 Calcium 10.1 mg/dL (8.5-10.5) 05/17/25 20:14 Total Bilirubin 0.3 mg/dL (0.15-1.2) 05/17/25 20:14 AST 13 U/L (0-32) 05/17/25 20:14 ALT 15 U/L (0-33) 05/17/25 20:14 Alkaline Phosphatase 82 U/L (35-105) 05/17/25 20:14 Total Protein 8.5 g/dL (6.6-8.7) 05/17/25 20:14 Albumin 5.2 g/dL (3.5-5.2) 05/17/25 20:14 Globulin 3.3 g/dL (1.3-4.6) 05/17/25 20:14 Urine Color Yellow (Yellow) 05/18/25 00:30 Urine Appearance Cloudy (CLEAR) A 05/18/25 00:30 Urine pH 6.0 (5-7) 05/18/25 00:30 Ur Specific Huffman 1.013 (1.005-1.030) 05/18/25 00:30 Urine Protein Negative (Negative) 05/18/25 00:30 Urine Glucose (UA) Negative (Normal) 05/18/25 00:30 Urine Ketones Negative (Negative) 05/18/25 00:30 Urine Blood Negative (Negative) 05/18/25 00:30 Urine Nitrate Negative (Negative) 05/18/25 00:30 Urine Bilirubin Negative (Negative) 05/18/25 00:30 Urine Urobilinogen 0.2 mg/dL (Negative) 05/18/25 00:30 Ur Leukocyte Esterase Trace (Negative) A 05/18/25 00:30 Urine RBC 6-10 /hpf (0-2) 05/18/25 00:30 Urine WBC 11-20 /hpf (0-5) H 05/18/25 00:30 Ur Squamous Epith Cells 11-20 /hpf (0-5) H 05/18/25 00:30 Amorphous Sediment Not Reportable 05/18/25 00:30 Urine Bacteria 1+ /hpf (NONE) H 05/18/25 00:30 Hyaline Casts 0-4 /lpf H 05/18/25 00:30 No radiology studies performed this visit Discharge Plan Discharge Patient Disposition: Home Clinical Impression: Gastritis Condition: Stable Prescriptions: New sucralfate 1 gram tablet 1 g PO TID 28 Days Qty: 84 0RF No Action famotidine [Acid [employer] (famotidine)] 20 mg tablet 20 mg PO BID 21 Days Qty: 42 0RF Discharge Orders: Discharge ED (Routine); Ordered 05/18/25 Ordered By: Jonathan Montoya Patient Instructions: Gastritis (ED), Opioid Safety, Pain Management, Patient Portal & Yolanda Instructions Activity Restrictions/Additional Instructions: Medication as directed. Take the famotidine at least 3 weeks. You may stop sucralfate after a week if your symptoms are significantly improved. Return for worsening pain despite treatment, vomiting liquids or medications, significant shortness of breath, any other new symptoms. Follow-up with your doctor next week. Print Language: Vietnamese Coding Level of Care Code ED [employer] for Matheus Duggan
[2025-05-18 01:17] LABS: UA Slide Review UA Slide Review Perf
[2025-05-18] MEDS: lidocaine 2% viscous 15 ML, aluminum-mag hydrox-simethicon 30 ML, sucralfate oral liq 1 GM PO (01:59)
== END 2025-05-18 03:57 | disposition home or self-care (01) ==
PROVIDERS: Emergency Provider Emergency Medicine
DX: K29.70 Gastritis, unspecified, without bleeding (principal)
CPT/HCPCS: 36415; 80053; 81001; 85025; 93005; 99284; J9999